=== PATIENT | male | born 1935 | race Caucasian/White ===

== ENCOUNTER 2020-06-04 19:40 | Emergency (ER) | payer MEDICARE ==
[~2020-06-04 19:40] MED LIST: NORCO 5-325 TA1 EACH PO
[2020-06-04 20:25] LABS: HEMOGLOBIN 11.9 gm/dl (14.0-17.5); RED BLOOD COUNT 3.95 M/UL (4.20-5.50); WHITE BLOOD COUNT 12.1 K/UL (4.5-11.0)
[2020-06-04 20:44] LABS: BUN/CREATININE RATIO 30 (0-10)
== END 2020-06-05 01:32 | disposition short-term general hospital (02) ==
LOC: ER1 19:40
PROVIDERS: Emergency Medicine
DX: K66.8 Other specified disorders of peritoneum (principal); E87.2 Acidosis; F17.200 Nicotine dependence, unspecified, uncomplicated; Z95.0 Presence of cardiac pacemaker; Z85.118 Personal history of other malignant neoplasm of bronchus and lung; Z20.822 Contact with and (suspected) exposure to COVID-19
CPT/HCPCS: 71045; 75635; 80053; 83605; 83690; 83735; 83880; 84100; 85025; 85610; 85730; 86850; 86900; 86901; 87040; 93005; 96374; 96375; 99285; J1335; J2270; Q9967; U0002